=== PATIENT | female | born 1960 | race Two or more races ===

== ENCOUNTER → 2019-07-19 06:00 | Outpatient (CLI) | payer OTHER ==
[~2019-07-19] VITALS: Ht 162.6 cm; Wt 78.0 kg
[~2019-07-19 06:00] MED LIST: COZAAR100 MG PO; MULTI VITAMIN1 EACH PO; ZOLOFT50 MG PO
== END | disposition home or self-care (01) ==
LOC: LAB 06:00 → EDSTATUS 07-20 08:00 → SURH 07-20 08:00 → CIR.AMB 07-20 08:00 → EDSTATUS 07-25 08:00 → SURH 07-25 08:00
DX: E66.01 Morbid (severe) obesity due to excess calories (principal); N62 Hypertrophy of breast; E88.1 Lipodystrophy, not elsewhere classified

== ENCOUNTER 2019-09-30 06:00 | Day surgery (SDC) | payer OTHER | END 2019-09-30 20:00 | disposition home or self-care (01) | LOC: CIR.AMB 06:00 | DX: E65 Localized adiposity (principal); M62.08 Separation of muscle (nontraumatic), other site; N62 Hypertrophy of breast ==

== ENCOUNTER 2020-08-20 08:43 | Outpatient (CLI) | payer OTHER | END 2020-08-20 08:54 | disposition home or self-care (01) | LOC: SONOGRAMA 08:43 | PROVIDERS: ATTEND Pathology Anatomic Pathology & Clinical Pathology | DX: E04.2 Nontoxic multinodular goiter (principal) ==

== ENCOUNTER 2020-10-03 06:00 | Day surgery (SDC) | payer OTHER ==
[2020-10-03] MEDS ORDERED: PERCOCET 5-3251 EACH PO (11:43)
== END 2020-10-03 14:10 | disposition home or self-care (01) ==
LOC: CIR.AMB 06:00
PROVIDERS: ATTEND Surgery
DX: E04.2 Nontoxic multinodular goiter (principal); Z20.822 Contact with and (suspected) exposure to COVID-19